=== PATIENT | male | born 1990 | race Caucasian/White ===

== ENCOUNTER 2023-04-24 15:56 | Emergency (ER) | payer SELFPAY ==
[~2023-04-24 15:56] MED LIST: LIDEX0.05% T; PREDNICOT20 MG PO; ZOFRAN4 MG PO
[2023-04-24] MEDS ORDERED: PREDNISONE20 M1 PO (16:02)
== END 2023-04-24 17:08 | disposition home or self-care (01) ==
LOC: ED 15:56
DX: T63.481A Toxic effect of venom of other arthropod, accidental (unintentional), initial encounter (principal); L53.0 Toxic erythema; Z88.2 Allergy status to sulfonamides; Y92.89 Other specified places as the place of occurrence of the external cause